=== PATIENT | female | born 1960 | race Caucasian/White ===

== ENCOUNTER 2019-05-17 19:12 | Emergency (ER) | payer OTHER ==
[~2019-05-17] VITALS: Ht 152.4 cm; Wt 69.4 kg
[~2019-05-17 19:12] MED LIST: MULT1TAB59; OMEG300C3; OMEP20CA16 PO; [UNRECOGNIZED DRUG - CODE]
[2019-05-17 19:20] VITALS: Ht 152.4 cm; Wt 69.4 kg
[2019-05-17] MEDS ORDERED: LIDOCAINE/MYLANTA 40 ML BTL PO STA (19:57)
[2019-05-17] MEDS ORDERED: morphine 4 MG/ML VIAL IV STA (19:57)
[2019-05-17] MEDS ORDERED: ONDANSETRON 4 MG INJ IV STA (19:57)
[2019-05-17] MEDS ORDERED: SOD CHLORIDE 0.9% 1,000 ML IV STA (19:57)
[2019-05-17] MEDS ORDERED: BELLADONNA/PHENOBARBITAL TAB PO STA (19:57)
[2019-05-17] MEDS ORDERED: FAMO40TA5 PO (22:10)
--- NOTE | 2019-05-17 22:23 | ERD ---
ER Documentation Chief Complaint Chief Complaint C/O SHARP MEDIAL BACK PAIN RADIATING TO EPIGASTRIC ARE X30 MIN HPI This is a 58-year-old female with a past medical history of hypertension that presents to the emergency department complaining of a sudden onset of severe epigastric pain. The patient stated the pain radiated to the tip of her right scapula. The patient stated the pain was a sharp pain. She felt nauseous but did not experience any emesis. She also stated was a burning-like sensation that came after the sharp shooting pain. She indicates she has been experiencing changes in her diet as she has been having a decrease in oral intake as she is attempting to lose weight. She is been taking protein shakes. She has had no chest pain. She denies any lower abdominal pain. No frequency urgency or dysuria. ROS All systems reviewed and are negative except as per history of present illness. Medications Home Meds Active Scripts Famotidine* (Famotidine*) 40 Mg Tablet, 40 MG PO BID, #60 TAB Prov:RIVERA BARFIELD MD 05/17/19 Reported Medications Omeprazole* (Omeprazole*) 20 Mg Capsule.dr, 20 MG PO QAM, CAP 05/17/14 Glady-3 Fatty Acids (Fish Oil) 300 Mg Capsule 05/19/11 Multivitamins* (Multivitamins*) 1 Tab Tablet 05/19/11 Discontinued Reported Medications Dl-Alpha Tocopheryl Acetate (Vitamin E) 100 Unit Capsule 05/19/11 Allergies Allergies: Coded Allergies: No Known Drug Allergies (Unverified Allergy, Mild, 05/17/19) PMhx/Soc History of Surgery: Yes ( 1982, 1979) Anesthesia Reaction: No Hx Neurological Disorder: No Hx Respiratory Disorders: No Hx Cardiac Disorders: Yes (BORDERLINE CHOL) Hx Psychiatric Problems: No Hx Miscellaneous Medical Probl: No Hx Alcohol Use: No Hx Substance Use: No Hx Tobacco Use: No Smoking Status: Never smoker Physical Exam Vitals Vital Signs Date Temp Pulse Resp B/P (MAP) Pulse Ox O2 O2 Flow FiO2 Time Delivery Rate 05/17/19 98.1 75 22 119/88 96 19:20 (98) Physical Exam Constitutional:Well-developed. Well-nourished. HEENT:Normocephalic. Atraumatic.Pupils were equal round reactive to light. Moist mucous membranes.No tonsillar exudates. Neck: No nuchal rigidity. No lymphadenopathy. No posterior cervical spine tenderness or step-offs. Respiratory: Not using accessory muscles of respiration.Lungs were clear to auscultation bilaterally. No rhonchi. No rales. No wheezing. Cardiovascular: Regular rate regular rhythm.No murmurs. No rubs were appreciated.S1, S2 normal. Distal pulses are palpable 2+ bilaterally. GI: Abdomen was soft. Reproducible epigastric tenderness and tenderness in the right upper quadrant. Negative Alfred sign. No tenderness right lower quadrant over McBurney's point. Psoas sign negative. Obturator sign negative.. Non Distended. No pulsatile abdominal masses or bruits. No rebound. No guarding. Bowel sounds were present and normal. Muscle skeletal: Full range of motion of both the upper and lower extremities bilaterally.Normal muscle tone.No assymetrical calf tenderness or swelling. Skin: No petechia, no purpura. No lesions on the palms or the soles of the feet. No maculopapular rash. NEURO: Patient was alert, awake, orientated x3.No facial droop. Gait observed and normal with no ataxia.Speech had regular rate and rhythm. No focal neurological deficits. Result Diagram: 05/17/19200205/17/192002 Results 24 hrs Laboratory Tests Test 05/17/19 20:03 White Blood Count 8.0 10^3/ul Red Blood Count 4.47 10^6/ul Hemoglobin 13.2 g/dl Hematocrit 39.6 % Mean Corpuscular Volume 88.6 fl Mean Corpuscular Hemoglobin 29.5 pg Mean Corpuscular Hemoglobin Concent 33.3 g/dl Red Cell Distribution Width 12.6 % Platelet Count 322 10^3/UL Mean Platelet Volume 9.4 fl Immature Granulocytes % 0.300 % Neutrophils % 54.4 % Lymphocytes % 33.6 % Monocytes % 9.4 % Eosinophils % 1.4 % Basophils % 0.9 % Nucleated Red Blood Cells % 0.0 /100WBC Immature Granulocytes # 0.020 10^3/ul Neutrophils # 4.3 10^3/ul Lymphocytes # 2.7 10^3/ul Monocytes # 0.8 10^3/ul Eosinophils # 0.1 10^3/ul Basophils # 0.1 10^3/ul Nucleated Red Blood Cells # 0.0 10^3/ul Prothrombin Time 12.5 Sec Prothrombin Time Ratio 1.0 INR International Normalized Ratio 0.92 Activated Partial Thromboplast Time 29.2 Sec Sodium Level 141 mmol/L Potassium Level 3.9 mmol/L Chloride Level 104 mmol/L Carbon Dioxide Level 29 mmol/L Anion Gap 8 Blood Urea Nitrogen 15 mg/dl Creatinine 0.69 mg/dl Est Glomerular Filtrat Rate mL/min > 60 mL/min Glucose Level 92 mg/dl Calcium Level 9.0 mg/dl Total Bilirubin 0.4 mg/dl Direct Bilirubin 0.00 mg/dl Indirect Bilirubin 0.4 mg/dl Aspartate Amino Transf (AST/SGOT) 54 IU/L Alanine Aminotransferase (ALT/SGPT) 30 IU/L Alkaline Phosphatase 125 IU/L Troponin I < 0.012 ng/ml Total Protein 8.1 g/dl Albumin 4.3 g/dl Globulin 3.80 g/dl Albumin/Globulin Ratio 1.13 Amylase Level 142 U/L Lipase 778 U/L Current Medications Medications Dose Sig/Meg Start Time Status Last (Trade) Ordered Route PRN Stop Time Admin Dose Reason Admin Sodium 1,000 ml @ Q1H STAT 05/17/19 DC 05/17/19 Chloride 1,000 mls/hr IV 19:57 05/17/19 20:07 20:56 Morphine 4 mg ONCE STAT 05/17/19 DC 05/17/19 Sulfate IV 19:57 05/17/19 20:08 (morphine) 20:00 Ondansetron 4 mg ONCE STAT 05/17/19 DC 05/17/19 HCl (Zofran IV 19:57 05/17/19 20:08 Inj) 20:00 40 ml ONCE STAT 05/17/19 DC 05/17/19 Miscellaneous PO 19:57 05/17/19 20:08 Medication 20:00 (Gi Cocktail (2)) Belladonna/ 2 tab ONCE STAT 05/17/19 DC 05/17/19 Phenobarbital PO 19:57 05/17/19 20:08 () 20:00 Procedures/MDM The patient presented to the emergency department with epigastric pain. My differential diagnosis included but was not limited to abdominal aortic aneurysm, choledocholithiasis, gallstone ileus, renal colic, pyelonephritis, pancreatitis, peptic ulcer disease, atypical myocardical infarction, mesenteric ischemia, GERD, pulmonary infarction. The patient was placed on a monitor car operator, continuous pulse oximetry and IV access was established by nursing staff. The patient received intravenous morphine and Zofran for analgesia control. An EKG was obtained to rule out myocardial ischemia. There was no elevation of LFTs to suggest ductal obstruction, cholangitis, cholecystiitis or hepatitis. Given that the urinalysis did not show bilirubinuria, my suspicion for common duct obstruction or hepatitis was low. 12 Lead EKG tracing ordered and reviewed by myself showed: Normal sinus rhythm of 67 bpm and no arrhythmia. MT interval normal. QRS duration normal. No ST segment elevation No ST segment depression. No changes consistent with acute ischemia. The patient had mild elevation of her pancreatic enzymes. The patient had an ultrasound that showed sludge within the gallbladder however there is no pericholecystic fluid or gallstones present. I did indicate to the patient I did not have an exact etiology into her symptoms. I did indicate she would benefit from an outpatient upper endoscopy. Her pain had completely resolved. She stated she felt comfortable being discharged home. She was sent home with a prescription of antacids. The patient was discharged home in fair condition. They were instructed to return to the emergency department at any time if there was any worsening of their condition. The patient stated they would follow up with their PCP in the next 24-48 hours to initiate a suitable medication regimen under the care of their PCP as well as to allow their PCP to monitor any drug reactions. The patient was discharged home with prescriptions after they gave informed consent to the new medication. They were also fully informed by myself on the adverse effects and adverse drug interactions in order to provide adequate safeguards to prevent possible adverse reactions to medications. Departure Diagnosis: Primary Impression: Epigastric pain Condition: Fair Patient Instructions: Epigastric Pain (Uncertain Cause) Referrals: GONZALEZ CHIN (PCP) RIVERA BARFIELD MD May 17, 2019 22:23
[2019-05-17 22:32] VITALS: BP 122/75; PULSE 54; RESP 18
== END 2019-05-17 22:35 | disposition home or self-care (01) ==
LOC: E/R 19:12
DX: R10.13 Epigastric pain (principal); I10 Essential (primary) hypertension; R11.0 Nausea
CPT/HCPCS: 71045; 76705; 80053; 82150; 83690; 84484; 85025; 85610; 85730; 93005; 96374; 96375; J2270; J2405; J7030; Z7502; Z7610

== ENCOUNTER 2019-06-07 23:52 | Inpatient (IN) | payer OTHER ==
[~2019-06-07] VITALS: Ht 66 cm; Wt 68.3 kg
[~2019-06-07 23:52] MED LIST changes: +FAMO40TA5 PO; -[UNRECOGNIZED DRUG - CODE]
[2019-06-08] MEDS ORDERED: KETOROLAC 30 MG INJ IV STA (01:15)
[2019-06-08] MEDS ORDERED: morphine 2 MG INJ IV STA ×2 (01:15→01:19)
[2019-06-08] MEDS ORDERED: SOD CHLORIDE 0.9% 1,000 ML IV STA ×2 (01:19→05:06)
--- NOTE | 2019-06-08 01:22 | ERD ---
ER Documentation Chief Complaint Chief Complaint back pain since 4 pm, denies trauma HPI 58-year-old female presents complaint of herpetic coverage pain radiating to her back since 4 PM today. Patient states she is just here a few weeks ago with the same problem. States that she was told and that she had a problem with her gallbladder or pancreas. Denies alcohol use or diabetes. Patient denies any nausea, vomiting, diarrhea, fevers, chills, chest pain, shortness of breath, cough. ROS All systems reviewed and are negative except as per history of present illness. Medications Home Meds Active Scripts Famotidine* (Famotidine*) 40 Mg Tablet, 40 MG PO BID, #60 TAB Prov:RIVERA BARFIELD MD 05/17/19 Reported Medications Omeprazole* (Omeprazole*) 20 Mg Capsule.dr, 20 MG PO QAM, CAP 05/17/14 Telephone-3 Fatty Acids (Fish Oil) 300 Mg Capsule 05/19/11 Multivitamins* (Multivitamins*) 1 Tab Tablet 05/19/11 Allergies Allergies: Coded Allergies: No Known Drug Allergies (Unverified Allergy, Mild, 05/17/19) PMhx/Soc History of Surgery: Yes ( 1982, 1979) Anesthesia Reaction: No Hx Neurological Disorder: No Hx Respiratory Disorders: No Hx Cardiac Disorders: Yes (BORDERLINE CHOL) Hx Psychiatric Problems: No Hx Miscellaneous Medical Probl: No Hx Alcohol Use: No Hx Substance Use: No Hx Tobacco Use: No Smoking Status: Never smoker FmHx Family History: No diabetes, No coronary disease, No other Physical Exam Vitals Vital Signs Date Temp Pulse Resp B/P (MAP) Pulse Ox O2 O2 Flow FiO2 Time Delivery Rate 06/08/19 98.6 70 18 119/74 99 00:19 (89) Physical Exam Const: No acute distress Head: Atraumatic Eyes: Normal Conjunctiva ENT: Normal External Ears, Nose and Mouth. Neck: Full range of motion. No meningismus. Resp: Clear to auscultation bilaterally Cardio: Regular rate and rhythm, no murmurs Abd: Tenderness palpation the upper right quadrant. No pulsatile masses noted. Skin: No petechiae or rashes Back: No midline or flank tenderness Ext: No cyanosis, or edema Neur: Awake and alert Psych: Normal Mood and Affect Result Diagram: 06/09/19 0428 06/09/19 0428 Results 24 hrs Laboratory Tests Test 06/08/19 01:28 06/08/19 01:32 White Blood Count 8.9 10^3/ul Red Blood Count 4.60 10^6/ul Hemoglobin 13.6 g/dl Hematocrit 40.9 % Mean Corpuscular Volume 88.9 fl Mean Corpuscular Hemoglobin 29.6 pg Mean Corpuscular Hemoglobin Concent 33.3 g/dl Red Cell Distribution Width 12.4 % Platelet Count 309 10^3/UL Mean Platelet Volume 9.4 fl Immature Granulocytes % 0.300 % Neutrophils % 71.0 % Lymphocytes % 18.3 % Monocytes % 8.0 % Eosinophils % 1.7 % Basophils % 0.7 % Nucleated Red Blood Cells % 0.0 /100WBC Immature Granulocytes # 0.030 10^3/ul Neutrophils # 6.4 10^3/ul Lymphocytes # 1.6 10^3/ul Monocytes # 0.7 10^3/ul Eosinophils # 0.2 10^3/ul Basophils # 0.1 10^3/ul Nucleated Red Blood Cells # 0.0 10^3/ul Sodium Level 142 mmol/L Potassium Level 3.5 mmol/L Chloride Level 103 mmol/L Carbon Dioxide Level 29 mmol/L Anion Gap 10 Blood Urea Nitrogen 13 mg/dl Creatinine 0.69 mg/dl Est Glomerular Filtrat Rate mL/min > 60 mL/min Glucose Level 107 mg/dl Calcium Level 9.4 mg/dl Total Bilirubin 0.6 mg/dl Direct Bilirubin 0.00 mg/dl Indirect Bilirubin 0.6 mg/dl Aspartate Amino Transf (AST/SGOT) 126 IU/L Alanine Aminotransferase (ALT/SGPT) 66 IU/L Alkaline Phosphatase 152 IU/L Troponin I < 0.012 ng/ml Total Protein 7.9 g/dl Albumin 4.3 g/dl Globulin 3.60 g/dl Albumin/Globulin Ratio 1.19 Lipase 4531 U/L Urine Color YELLOW Urine Clarity CLEAR Urine pH 7.0 Urine Specific [place] 1.009 Urine Ketones NEGATIVE mg/dL Urine Nitrite NEGATIVE mg/dL Urine Bilirubin NEGATIVE mg/dL Urine Urobilinogen NEGATIVE mg/dL Urine Leukocyte Esterase 1+ Maurilio/ul Urine Microscopic RBC 2 /HPF Urine Microscopic WBC 2 /HPF Urine Bacteria FEW /HPF Urine Hemoglobin 1+ mg/dL Urine Glucose NEGATIVE mg/dL Urine Total Protein NEGATIVE mg/dl Urine Opiates Screen NEGATIVE Urine Barbiturates NEGATIVE Urine Amphetamines Screen NEGATIVE Urine Benzodiazepines Screen NEGATIVE Urine Cocaine Screen NEGATIVE Urine Cannabinoids NEGATIVE Current Medications Medications Dose Sig/Meg Start Time Status Last (Trade) Ordered Route PRN Stop Time Admin Dose Reason Admin Morphine 2 mg ONCE STAT 06/08/19 DC 06/08/19 Sulfate IV 01:15 01:32 (morphine) 06/08/19 01:18 Ketorolac 30 mg ONCE STAT 06/08/19 DC 06/08/19 Tromethamine IV 01:15 01:32 (Toradol) 06/08/19 01:18 Morphine 2 mg ONCE STAT 06/08/19 DC Sulfate IV 01:19 (morphine) 06/08/19 01:20 Sodium 1,000 ml @ Q1H STAT 06/08/19 DC 06/08/19 Chloride 1,000 mls/hr IV 01:19 01:33 06/08/19 02:18 Sodium 1,000 ml @ Q1H STAT 06/08/19 DC Chloride 1,000 mls/hr IV 05:06 06/08/19 06:05 Procedures/MDM DIAGNOSTIC IMAGING REPORT Patient: MARINE COTE : 1960 Age: 58 Sex: F MR #: [id number] DOS: 06/08/19 0115 Ordering MD: FIORELLA IVEY Location: [facility] Room/Bed: PROCEDURE: US Abdomen. CLINICAL INDICATION: Pain TECHNIQUE: Multiple real-time images were acquired of the patient's abdomen and retroperitoneum utilizing a high resolution transducer. COMPARISON: None FINDINGS: No evidence of cholelithiasis gallbladder wall thickening or pericholecystic fl uid. Common bile duct normal limits in size maximal transverse diameter of 4.48 mm. No intrahepatic biliary ductal dilation. Pancreas is not visualized due to overlying bowel gas. Liver normal in size maximal sagittal mention 14.56 cm. Normal liver parenchymal echogenicity without focal lesions. Right kidney normal in size maximal sagittal mention 10.32 cm. Normal right renal parenchymal echogenicity without calculus mass or hydronephrosis. Normal portal venous flow. IMPRESSION: 1. Unremarkable gallbladder without biliary ductal dilation. 2. Unremarkable liver and right kidney. 3. Inability to visualize pancreas due to overlying bowel gas. RPTAT:AAJJ Physician Eugene Date Time Electronically viewed and signed by Physician Eugene on 06/08/2019 04:18 BM/ CC: FIORELLA IVEY [id number] IAGNOSTIC IMAGING REPORT Patient: MARINE COTE : 1960 Age: 58 Sex: F MR #: [id number] DOS: 06/08/19 0115 Ordering MD: FIORELLA IVEY Location: [facility] Room/Bed: PROCEDURE: CT Abdomen and Pelvis without contrast. CLINICAL INDICATION: Abdominal pain TECHNIQUE: CT scan of the abdomen and pelvis without contrast was performed on a multi-detector high-resolution CT scanner. Coronal and sagittal reformatted images obtained from the axial source images. Images were reviewed on a high- resolution PACS workstation. Exam CTDI 9.39 mGy Exam DLP 499.06 mGy-cm DICOM images are available. One or more of the following dose reduction techniques were utilized: 1.) Automated exposure control 2.) Adjustment of the mA +/- kV according to patient's size 3.) Use of iterative reconstruction technique. COMPARISON: None FINDINGS: CT abdomen: LOWER THORAX: There is mild linear atelectasis at the base of the right lung. LIVER AND GALLBLADDER: No abnormal findings. SPLEEN: Normal. PANCREAS: Normal. ADRENAL GLANDS: Normal. KIDNEYS: Kidneys are symmetric in size and morphology. No hydronephrosis or visible renal calculus. Bilateral ureters are unremarkable. VASCULATURE: Abdominal aorta is normal in caliber. LYMPH NODES: No significant retroperitoneal or mesenteric lymphadenopathy. BOWEL AND MESENTERY: Stomach and small bowel are unremarkable. Appendix measures within normal limits. The large bowel is unremarkable. CT pelvis: The urinary bladder is decompressed and otherwise unremarkable. The uterus is absent. There is no free fluid in the pelvis. No significant pelvic lymphadenopathy. Bones: There is degenerative marginal spurring throughout the lower thoracic spine. Regional bones are otherwise intact. Superficial soft tissues are unremarkable. IMPRESSION: 1. No acute process in the imaged abdomen or pelvis. 2. No renal calcifications or evidence of obstructive uropathy. 3. No pelvic free fluid. RPTAT: HJBB Physician Amaya Date Time Electronically viewed and signed by Emma Meade Physician on 06/08/2019 02:21 xB/ CC: FIORELLA IVEY [id number] MDM: Labs and note of previous visit were reviewed. Given the patient's complaint of acute abdominal pain as well as findings on physical exam, decision was made to order CT with contrast of abdomen and pelvis as well as gallbladder ultrasound. Results of imaging was within normal limits however patient's lipase was elevated to 4300, a dramatic elevation from previous lipase levels.. Patient denies any alcohol use or history of diabetes. The case was discussed with supervising physician Dr. Lam and decision was made to admit patient. Patient was given IV fluids as well as pain medication which resolved her pain in the ER. Patient currently being admitted by Dr. Tinajero. Departure Diagnosis: Primary Impression: Acute pancreatitis Condition: Serious FIORELLA IVEY Jun 08, 2019 01:22
[2019-06-08] MEDS ORDERED: BISACODYL (EC) 5 MG TAB PO PRN (05:30)
[2019-06-08] MEDS ORDERED: DOCUSATE SODIUM 100 MG CAP PO PRN (05:30)
[2019-06-08] MEDS ORDERED: ONDANSETRON 4 MG INJ IV PRN (05:30)
[2019-06-08] MEDS ORDERED: NACL 0.9% 3 ML SYG IV SCH (05:30)
[2019-06-08] MEDS ORDERED: SOD CHLORIDE 0.9% 500 ML IV SCH (06:30)
[2019-06-08] MEDS: SOD CHLORIDE 0.9% 1,000 ML IV SCH ×3 (06:51→19:30)
[2019-06-08] MEDS: HYDROmorphONE 1 MG/ML SYG IV PRN ×3 (07:54→19:30)
--- NOTE | 2019-06-08 08:19 | HP ---
Date/Time of Note Date/Time of Note DATE: 06/08/19 TIME: 08:14 Assessment/Plan VTE Prophylaxis SCD applied (from Nsg): Yes Pharmacological prophylaxis: NA/contraindicated Pharm contraindication: low risk/ambulating Lines/Catheters IV Catheter Type (from Nrsg): Saline Lock Assessment/Plan Hospital Course This is a 58-year female being admitted to the [facility] floor for: #1 acute pancreatitis: Etiology unknown ultrasound did not show any signs of gallstones. Patient denies alcohol use. Will check lipid panel to assess triglyceride level. Aggressive IV fluid hydration with normal saline at 150 cc an hour. Pain control with Dilaudid. Zofran for nausea. We will keep the patient n.p.o. except medications. #2 obesity: Check hemoglobin A 1C, lipid panel, TSH #3 gastritis: Continue PPI, H2 carolyn #4 DVT GI prophylaxis: SCDs, home PPI/H2 carolyn Further treatment strategy will be implemented as per the clinical course. Result Diagram: 06/08/19 0128 06/08/19 0128 Results 24hrs Laboratory Tests Test 06/08/19 01:28 06/08/19 01:32 06/08/19 06:29 White Blood Count 8.9 Red Blood Count 4.60 Hemoglobin 13.6 Hematocrit 40.9 Mean Corpuscular Volume 88.9 Mean Corpuscular Hemoglobin 29.6 Mean Corpuscular Hemoglobin Concent 33.3 Red Cell Distribution Width 12.4 Platelet Count 309 Mean Platelet Volume 9.4 Immature Granulocytes % 0.300 Neutrophils % 71.0 Lymphocytes % 18.3 Monocytes % 8.0 Eosinophils % 1.7 Basophils % 0.7 Nucleated Red Blood Cells % 0.0 Immature Granulocytes # 0.030 Neutrophils # 6.4 Lymphocytes # 1.6 Monocytes # 0.7 Eosinophils # 0.2 Basophils # 0.1 Nucleated Red Blood Cells # 0.0 Sodium Level 142 Potassium Level 3.5 Chloride Level 103 Carbon Dioxide Level 29 Anion Gap 10 Blood Urea Nitrogen 13 Creatinine 0.69 Est Glomerular Filtrat Rate mL/min > 60 Glucose Level 107 Calcium Level 9.4 Total Bilirubin 0.6 Direct Bilirubin 0.00 Indirect Bilirubin 0.6 Aspartate Amino Transf (AST/SGOT) 126 H Alanine Aminotransferase (ALT/SGPT) 66 Alkaline Phosphatase 152 H Troponin I < 0.012 Total Protein 7.9 Albumin 4.3 Globulin 3.60 H Albumin/Globulin Ratio 1.19 Lipase 4531 H Urine Color YELLOW Urine Clarity CLEAR Urine pH 7.0 Urine Specific Lula 1.009 Urine Ketones NEGATIVE Urine Nitrite NEGATIVE Urine Bilirubin NEGATIVE Urine Urobilinogen NEGATIVE Urine Leukocyte Esterase 1+ H Urine Microscopic RBC 2 Urine Microscopic WBC 2 Urine Bacteria FEW A Urine Hemoglobin 1+ H Urine Glucose NEGATIVE Urine Total Protein NEGATIVE Ethyl Alcohol Level < 10.0 H HPI/ROS Admit Date/Time Admit Date/Time Hx of Present Illness Chief complaint: Abdominal pain 58-year-old female presents complaint of epigastric pain that is been going on for the last 5 days but got worse yesterday. Patient states she is just here a few weeks ago with the same problem. States that she was told and that she had a problem with her gallbladder or pancreas. Patient denies any nausea, vomiting, diarrhea, fevers, chills, chest pain, shortness of breath, cough. She denies any urinary symptoms. She denies any alcohol usage or history of gallstones Allergies: NKDA Medications: See CYNDI MINER Const: As per HPI Eyes : No pain discharge or redness or change in visual acuity ENT: No pain, sore throat, congestion, congestion, dysphagia or discharge Respiratory: No shortness of breath, cough, sputum, wheezing, or pleuritic pain Cardiovascular: No chest pain, palpitation, PND, or edema GI : As per HPI Genitourinary: No dysuria, hematuria, flank pain , discharge or CVA tenderness Musculoskeletal: No joint pain, back pain, neck pain, restricted range of motion in neck or joints Skin: No rash, bruising or hives Neuro: No headache, dizziness, syncope, seizure, focal weakness Endocrine: No polyuria, polydipsia, temperature intolerance Psych: No hallucination, depression, anxiety or suicidal ideation PMH/Family/Social Past Medical History Gastritis Medications Current Medications Sodium Chloride 1,000 ml @ 150 mls/hr Q6H40M IV Last administered on 06/08/19at 06:51; Admin Dose 150 MLS/HR; Start 06/08/19 at 05:18 IV Flush (NS 3 ml) 3 ml PER PROTOCOL IV ; Start 06/08/19 at 05:30 Ondansetron HCl (Zofran Inj) 4 mg Q6H PRN IV NAUSEA/VOMITING; Start 06/08/19 at 05:30 Acetaminophen (Tylenol Tab) 650 mg Q6H PRN PO .PAIN 1-3 OR TEMP; Start 06/08/19 at 05:30 Hydromorphone HCl (Dilaudid) 1 mg Q4H PRN IV .SEVERE PAIN 7-10 Last administered on 06/08/19at 07:54; Admin Dose 1 MG; Start 06/08/19 at 05:30 Docusate Sodium (Colace) 100 mg Q12H PRN PO .CONSTIPATION; Start 06/08/19 at 05:30 Bisacodyl (Dulcolax) 5 mg DAILY PRN PO .CONSTIPATION; Start 06/08/19 at 05:30 Coded Allergies: No Known Drug Allergies (Unverified Allergy, Mild, 05/17/19) Past Surgical History x2 Family History Significant Family History: no pertinent family hx Social History Alcohol Use: none Smoking Status: Never smoker Drug Use: none Exam/Review of Systems Vital Signs Vitals Vital Signs Date Temp Pulse Resp B/P (MAP) Pulse Ox O2 O2 Flow FiO2 Time Delivery Rate 06/08/19 98.6 80 23 118/57 95 Room Air 07:29 (77) Exam Exam General: Patient is a pleasant female currently lying in bed in mild distress from abdominal pain HEENT: Atraumatic, normocephalic. The pupils are equal, round and reactive. Extraocular motor are intact Neck: Supple with full range of motion. No rigidity or meningismus Chest: Nontender Lungs: Clear to auscultation bilaterally no crackles rales or wheezing Heart: Normal S1-S2, Regular rhythm and rate. No murmur, S3, or S4 Abdomen: Obese epigastric tenderness to palpation, nondistended , bowel sounds are present. No guarding no rebound tenderness , No masses or organomegaly. No costovertebral temporal angle mass Extremities: Normal to inspection, no edema no cyanosis Neurologic: Normal mental status, speech normal, cranial nerves II through XII are intact, motor and sensory are intact, no focal weakness Additional Comments PROCEDURE: US Abdomen. CLINICAL INDICATION: Pain TECHNIQUE: Multiple real-time images were acquired of the patient's abdomen and retroperitoneum utilizing a high resolution transducer. COMPARISON: None FINDINGS: No evidence of cholelithiasis gallbladder wall thickening or pericholecystic fluid. Common bile duct normal limits in size maximal transverse diameter of 4.48 mm. No intrahepatic biliary ductal dilation. Pancreas is not visualized due to overlying bowel gas. Liver normal in size maximal sagittal mention 14.56 cm. Normal liver parenchymal echogenicity without focal lesions. Right kidney normal in size maximal sagittal mention 10.32 cm. Normal right renal parenchymal echogenicity without calculus mass or hydronephrosis. Normal portal venous flow. IMPRESSION: 1. Unremarkable gallbladder without biliary ductal dilation. 2. Unremarkable liver and right kidney. 3. Inability to visualize pancreas due to overlying bowel gas. RPTAT:AAJJ Physician Eugene Date Time Electronically viewed and signed by Physician Eugene on 06/08/2019 04:18 BM/ CC: FIORELLA IVEY [id number] PROCEDURE: CT Abdomen and Pelvis without contrast. CLINICAL INDICATION: Abdominal pain TECHNIQUE: CT scan of the abdomen and pelvis without contrast was performed on a multi-detector high-resolution CT scanner. Coronal and sagittal reformatted images obtained from the axial source images. Images were reviewed on a high-resolution PACS workstation. Exam CTDI 9.39 mGy Exam DLP 499.06 mGy-cm DICOM images are available. One or more of the following dose reduction techniques were utilized: 1.) Automated exposure control 2.) Adjustment of the mA +/- kV according to patient's size 3.) Use of iterative reconstruction technique. COMPARISON: None FINDINGS: CT abdomen: LOWER THORAX: There is mild linear atelectasis at the base of the right lung. LIVER AND GALLBLADDER: No abnormal findings. SPLEEN: Normal. PANCREAS: Normal. ADRENAL GLANDS: Normal. KIDNEYS: Kidneys are symmetric in size and morphology. No hydronephrosis or visible renal calculus. Bilateral ureters are unremarkable. VASCULATURE: Abdominal aorta is normal in caliber. LYMPH NODES: No significant retroperitoneal or mesenteric lymphadenopathy. BOWEL AND MESENTERY: Stomach and small bowel are unremarkable. Appendix measures within normal limits. The large bowel is unremarkable. CT pelvis: The urinary bladder is decompressed and otherwise unremarkable. The uterus is absent. There is no free fluid in the pelvis. No significant pelvic lymphadenopathy. Bones: There is degenerative marginal spurring throughout the lower thoracic spine. Regional bones are otherwise intact. Superficial soft tissues are unremarkable. IMPRESSION: 1. No acute process in the imaged abdomen or pelvis. 2. No renal calcifications or evidence of obstructive uropathy. 3. No pelvic free fluid. RPTAT: HJBB Physician Amaya Date Time Electronically viewed and signed by Physician Amaya on 06/08/2019 02:21 xB/ CC: FIORELLA IVEY [id number] JADYN KEBEDE Jun 08, 2019 08:19
[2019-06-08 09:00] VITALS: BP 128/68; PULSE 91; RESP 18
[2019-06-08] MEDS: PANTOPRAZOLE (EC) 40 MG TAB PO SCH (09:43)
[2019-06-08] MEDS: FAMOTIDINE 20 MG TAB PO SCH ×2 (09:43→21:00)
[2019-06-08 10:29] VITALS: Ht 66 cm; Wt 68.3 kg
[2019-06-08 13:59] VITALS: BP 126/70; PULSE 100; RESP 20
[2019-06-08] MEDS: ACETAMINOPHEN 325 MG TAB PO PRN ×2 (13:59→21:57)
[2019-06-08 15:00] VITALS: PULSE 94
[2019-06-08 20:02] VITALS: BP 102/59; PULSE 52; RESP 18
[2019-06-09 01:22] VITALS: BP 99/52; PULSE 66; RESP 18
[2019-06-09] MEDS: SOD CHLORIDE 0.9% 1,000 ML IV SCH ×3 (02:13→09:36)
[2019-06-09] MEDS: PANTOPRAZOLE (EC) 40 MG TAB PO SCH (06:03)
[2019-06-09] MEDS: ACETAMINOPHEN 325 MG TAB PO PRN ×2 (06:13→12:15)
[2019-06-09 07:46] VITALS: BP 100/54; PULSE 72; RESP 15
[2019-06-09] MEDS: FAMOTIDINE 20 MG TAB PO SCH (08:17)
--- NOTE | 2019-06-09 13:41 | PDOCDIS ---
Discharge Instructions DIAGNOSIS Discharge Diagnosis Pancreatitis CONDITION [id number] Patient Condition: Rucmy9m Stable FOLLOW UP/APPOINTMENTS Follow-up Plan Avoid alcohol Return to the hospital if you have any concerning symptoms CAMERON HELMS MD Jun 09, 2019 13:41
--- NOTE | 2019-06-09 13:42 | DS ---
Date/Time of Note Date/Time of Note DATE: 06/09/19 TIME: 13:41 Discharge Summary Admission/Discharge Info Admit Date/Time Jun 08, 2019 at 05:14 Discharge Date/Time Discharge Diagnosis Pancreatitis Patient Condition: Stable Hospital Course The patient was found to have an elevated lipase level and transamintiis. However there was no acute pathology on her CT scan. Her liver enzymes improved and lipase elevation resolved by day 2. She was completely asymptomatic and re quested discharge to home. Home Meds Active Scripts Famotidine* (Famotidine*) 40 Mg Tablet, 40 MG PO BID, #60 TAB Prov:RIVERA BARFIELD MD 05/17/19 Reported Medications Omeprazole* (Omeprazole*) 20 Mg Capsule.dr, 20 MG PO NAHOMY JOHNSON 05/17/14 Mobile-3 Fatty Acids (Fish Oil) 300 Mg Capsule 05/19/11 Multivitamins* (Multivitamins*) 1 Tab Tablet 05/19/11 Follow-up Plan Avoid alcohol Return to the hospital if you have any concerning symptoms Primary Care Provider Not On Staff Doctor Pending Labs Laboratory Tests Test 06/09/19 04:28 White Blood Count 8.5 10^3/ul (4.8-10.8) Red Blood Count 3.95 10^6/ul (4.20-5.40) Hemoglobin 11.8 g/dl (12.0-16.0) Hematocrit 36.5 % (37.0-47.0) Mean Corpuscular Volume 92.4 fl (82.0-101.0) Mean Corpuscular Hemoglobin 29.9 pg (29.0-33.0) Mean Corpuscular Hemoglobin Concent 32.3 g/dl (32.0-37.0) Red Cell Distribution Width 13.0 % (11.5-14.5) Platelet Count 234 10^3/UL (140-415) Mean Platelet Volume 9.9 fl (7.4-10.4) Immature Granulocytes % 0.400 % (0.001-0.429) Neutrophils % 72.2 % (39.0-77.0) Lymphocytes % 16.0 % (15.0-51.0) Monocytes % 10.1 % (0.0-11.0) Eosinophils % 0.9 % (0.0-7.0) Basophils % 0.4 % (0.0-2.0) Nucleated Red Blood Cells % 0.0 /100WBC (0.0-0.0) Immature Granulocytes # 0.030 10^3/ul (0.0-0.031) Neutrophils # 6.2 10^3/ul (1.6-7.5) Lymphocytes # 1.4 10^3/ul (0.8-2.9) Monocytes # 0.9 10^3/ul (0.3-0.9) Eosinophils # 0.1 10^3/ul (0.0-0.5) Basophils # 0.0 10^3/ul (0.0-0.1) Nucleated Red Blood Cells # 0.0 10^3/ul (0.0-0.0) Sodium Level 143 mmol/L (135-144) Potassium Level 4.0 mmol/L (3.5-5.1) Chloride Level 112 mmol/L (97-110) Carbon Dioxide Level 26 mmol/L (21-31) Anion Gap 5 (5-13) Blood Urea Nitrogen 10 mg/dl (7-20) Creatinine 0.61 mg/dl (0.44-1.00) Est Glomerular Filtrat Rate mL/min > 60 mL/min (>60) Glucose Level 94 mg/dl (70-220) Hemoglobin A1c 5.3 % (0-5.9) Calcium Level 7.9 mg/dl (8.4-10.2) Magnesium Level 2.2 mg/dl (1.7-2.5) Total Bilirubin 0.7 mg/dl (0.2-1.3) Direct Bilirubin 0.00 mg/dl (0.00-0.20) Indirect Bilirubin 0.7 mg/dl (0-1.1) Aspartate Amino Transf (AST/SGOT) 68 IU/L (15-46) Alanine Aminotransferase (ALT/SGPT) 78 IU/L (13-69) Alkaline Phosphatase 96 IU/L (42-121) Total Protein 6.4 g/dl (6.1-8.1) Albumin 3.2 g/dl (3.3-4.9) Globulin 3.20 g/dl (1.3-3.2) Albumin/Globulin Ratio 1.00 Triglycerides Level 39 mg/dl (0-149) Cholesterol Level 142 mg/dl (100-200) LDL Cholesterol, Calculated 86 mg/dl HDL Cholesterol 48 mg/dl (35-98) Cholesterol/HDL Ratio 2.9 RATIO Lipase 104 U/L (23-300) Thyroid Stimulating Hormone (TSH) 0.493 MIU/L (0.465-4.680) CAMERON HELMS MD Jun 09, 2019 13:42
== END 2019-06-09 16:30 | disposition home or self-care (01) | DRG 439 ==
LOC: FTE 23:52 → MS1 06-08 05:14
PROVIDERS: ADMIT Family Medicine; ATTEND Internal Medicine
DX: K85.90 Acute pancreatitis without necrosis or infection, unspecified (principal); Z68.44 Body mass index [BMI] 60.0-69.9, adult; K29.70 Gastritis, unspecified, without bleeding; E66.9 Obesity, unspecified
CPT/HCPCS: 74176; 76705; 80053; 80061; 80307; 81001; 83036; 83690; 83735; 84443; 84484; 85025; 93005; J1170; J1885; J2270; J2405; J7030